=== PATIENT | female | born 1950 | race Caucasian/White ===

== ENCOUNTER 2017-06-01 16:23 | Emergency (ER) | payer MEDICARE, BC ==
[2017-06-01 17:06] VITALS: BP 153/82; PULSE 72; RESP 16; TEMP 97.9; O2SAT 98
== END 2017-06-01 17:40 | disposition home or self-care (01) | DRG 556 ==
LOC: ED 16:23
DX: M25.571 Pain in right ankle and joints of right foot (principal); S09.90XA Unspecified injury of head, initial encounter; W17.89XA Other fall from one level to another, initial encounter
CPT/HCPCS: 73610; 99282; E0114

== ENCOUNTER 2017-06-21 14:05 | Outpatient (CLI) | payer MEDICARE, BC ==
[2017-06-01 17:06] VITALS: O2SAT 98
== END 2017-06-21 14:06 | disposition home or self-care (01) | DRG 556 ==
LOC: CONVCARE 14:05
PROVIDERS: ATTEND Orthopaedic Surgery
DX: M25.571 Pain in right ankle and joints of right foot (principal); M79.671 Pain in right foot
CPT/HCPCS: 73610; 73630

== ENCOUNTER 2017-08-09 09:55 | Outpatient (CLI) | payer MEDICARE, BC ==
[2017-06-01 17:06] VITALS: O2SAT 98
== END 2017-08-09 09:56 | disposition home or self-care (01) | DRG 561 ==
LOC: CONVCARE 09:55
PROVIDERS: ATTEND Orthopaedic Surgery
DX: S92.001D Unspecified fracture of right calcaneus, subsequent encounter for fracture with routine healing (principal)
CPT/HCPCS: 73650

== ENCOUNTER 2017-09-06 07:37 | Outpatient (CLI) | payer MEDICARE, BC ==
[2017-06-01 17:06] VITALS: O2SAT 98
== END 2017-09-06 07:38 | disposition home or self-care (01) | DRG 561 ==
LOC: CONVCARE 07:37
PROVIDERS: ATTEND Orthopaedic Surgery
DX: S92.001D Unspecified fracture of right calcaneus, subsequent encounter for fracture with routine healing (principal)
CPT/HCPCS: 73650